=== PATIENT | female | born 1950 | race Caucasian/White ===

== ENCOUNTER 2018-12-02 13:20 | Emergency (ER) | payer MEDICARE, BC ==
--- OUTSIDE RECORDS SUMMARY | 2018-12-02 13:36 | XMS REPORT | Continuity of Care Document ---
:1950 External Reference #:[id number] Author Name Marlon Subramanian Care Team Providers Name Role Phone Pete Alanis MD Primary Care Physician Unavailable Payers Date Identification Numbers Payment Provider Subscriber Effective: 2014 Policy Number: [id number] Medicare [employer] Name: Medicare [address] PayID: [id number] [place] [address] Effective: 2005 Policy Number: [id number] [facility] [employer] Name: [facility] [address] PayID: [id number] [place] [address] Advance Directives Description No Information Available Problems Active Problems Provider Date Essential hypertension Onset: 10/30/2014 Benign essential hypertension Onset: 08/04/2011 Raynaud's disease Onset: 08/04/2011 Asthma without status asthmaticus Onset: 08/04/2011 Family History Date Family Member(s) Observation Comments Father Bone-Cancer Mother Unknown Social History Type Date Description Comments Sex Unknown Marital Status Occupation Full-Time Employment ETOH Use Consumes 2-3 glasses of wine per day Tobacco Use Reviewed: 11/07/15 Patient has never smoked Smoking Status Reviewed: 11/22/18 Patient has never smoked Allergies, Adverse Reactions, Alerts Active Allergies Reaction Severity Comments Date Pollen 07/29/2018 Dust 07/29/2018 Medications Active Medications SIG Qnty Indications Ordering Date Provider Rama blue to have 2units Pete 11/22/2018 50mcg/0.5ML immunization at [facility] now and in 3-6 months Lisinopril-Hydrochloro 1 by mouth every 90tabs I10 Pete 11/22/2018 thiazide day [facility] 20-25mg Tablets Omeprazole 1 by mouth every 90caps K21.9 Pete 11/10/2016 20mg Capsules day MD CAROL ANN Alanis Liptasneem 1 by mouth every 90tabs Pete 06/02/2016 10mg Tablets day at supper [facility] Levocetirizine 1 by mouth every 90tabs J30.9 Pete 11/08/2015 Dihydrochloride day [facility] 5mg Tablets Proair HFA 2 puffs every 4 1units J45.909 Pete 10/30/2014 108(90Base) hours as needed [facility] mcg/Act Aerosol Advair Diskus use 1 puff twice a 3units J45.909 Pete day [facility] 250-50mcg/Dose Aerosol History Medications Lisinopril 1 by mouth every 90tabs I10 Pete Alanis 05/12/2017 - 20mg day 11/22/2018 Tablets Flonase 2 sprays 1units 477.9 Pete Alanis 05/08/2014 - 50mcg/Act intranasal every 10/30/2014 Suspension day Xyzal 1 by mouth every 90tabs J30.9 Pete Alanis 05/08/2014 - 5mg Tablets day 11/08/2015 Niaspan 1 by mouth every 90tabs I10 Pete Alanis 05/08/2014 - 500mg day 05/26/2016 Tablets ER Lisinopril-Hydrochl 1 every day 90tabs I10 Pete Alanis 02/05/2014 - orothiazide 05/12/2017 20-25mg Tablets Veramyst 2 sprays 3units 477.9 Pete Alanis 02/22/2012 - intranasal every 02/15/2013 27.5mcg/Hinkle day Suspension Proctosol HC use after bm and 455.3 Pete Alanis, 08/26/2011 - 2.5% at hs 10/24/2013 Cream Florastor 1 po bid 60caps 009.1 Pete Alanis, 08/10/2011 - 250mg 10/24/2013 Capsules Lomotil up to 2 tabs qid 30tabs 009.1 Pete Alanis 08/10/2011 - 2.5-0.025mg 10/24/2013 Tablets Ventolin HFA 2 puffs q4prn 1units 493.90 Pete Alanis, 08/04/2011 - MD 10/30/2014 108(90Base) mcg/Act Aerosol Zyrtec Allergy 1 po prn 477.9 Pete Alanis, 08/04/2011 - 10mg 05/08/2014 Tablets Omeprazole 1 daily 90caps I10 Pete Alanis, - 40mg 11/10/2016 Capsules Lisinopril-Hydrochl 1 qd 90tabs 401.9 Pete Alanis, - orothiazide 02/05/2014 20-25mg Tablets Fluorouracil Unknown - 5% 11/11/2017 Cream Immunizations CPT Code Status Date Vaccine Lot # [id number] Given 11/08/2015 Pneumococcal Conjugate Vaccine 13 Valent For Intramuscular Use [id number] Given 10/24/2013 Tdap - Tetanus/Diptheria/Acellular Pertussis 06977 Given 02/15/2013 Zoster (Zostavax) [id number] Given 02/26/2000 Tetanus And Diptheria (Td) For Adult Use Preservative Free Vital Signs Date Vital Result Comment 11/22/2018 1:01pm Height 64 inches 5'4" Weight 165.00 lb Heart Rate 64 /min BP Systolic 150 mmHg BP Diastolic 76 mmHg Respiratory Rate 16 /min O2 % BldC Oximetry 99 % room air BMI (Body Mass Index) 28.3 kg/m2 05/20/2018 8:01am Weight 164.00 lb BP Systolic 148 mmHg BP Diastolic 70 mmHg 11/11/2017 8:17am Height 63 inches Weight 168.00 lb Heart Rate 78 /min BP Systolic 180 mmHg BP Diastolic 90 mmHg BMI (Body Mass Index) 29.8 kg/m2 05/12/2017 8:13am Weight 169.00 lb BP Systolic 126 mmHg BP Diastolic 72 mmHg 11/10/2016 9:27am Height 63.25 inches Weight 168.50 lb Heart Rate 68 /min BP Systolic 108 mmHg BP Diastolic 58 mmHg Respiratory Rate 16 /min Body Temperature 98.7 F BMI (Body Mass Index) 29.6 kg/m2 05/26/2016 8:07am Weight 170.00 lb BP Systolic 140 mmHg BP Diastolic 70 mmHg 11/08/2015 9:04am Height 63 inches Weight 167.00 lb Heart Rate 68 /min BP Systolic 138 mmHg BP Diastolic 80 mmHg Respiratory Rate 16 /min Body Temperature 98.7 F BMI (Body Mass Index) 29.6 kg/m2 10/30/2014 8:14am Height 63 inches Weight 167.00 lb Heart Rate 68 /min BP Systolic 116 mmHg BP Diastolic 68 mmHg Respiratory Rate 16 /min Body Temperature 98.5 F BMI (Body Mass Index) 29.6 kg/m2 05/08/2014 8:01am Weight 170.50 lb BP Systolic 128 mmHg BP Diastolic 74 mmHg 10/24/2013 8:03am Height 63.25 inches Weight 172.00 lb BP Systolic 130 mmHg BP Diastolic 70 mmHg BMI (Body Mass Index) 30.2 kg/m2 02/15/2013 8:41am Weight 170.50 lb BP Systolic 120 mmHg BP Diastolic 70 mmHg 08/23/2012 1:45pm Weight 168.00 lb BP Systolic 124 mmHg BP Diastolic 70 mmHg 02/22/2012 8:46am Height 63 inches BP Systolic 130 mmHg BP Diastolic 70 mmHg 08/26/2011 2:19pm Height 63 inches Weight 159.50 lb BP Systolic 112 mmHg BP Diastolic 56 mmHg BMI (Body Mass Index) 28.3 kg/m2 08/10/2011 3:30pm Height 63 inches Weight 159.00 lb BMI (Body Mass Index) 28.2 kg/m2 08/04/2011 10:25am Height 63 inches Weight 165.00 lb BP Systolic 118 mmHg BP Diastolic 74 mmHg BMI (Body Mass Index) 29.2 kg/m2 Results Test Date Facility Test Result H/L Range Note Basic Metabolic Panel 08/26/2017 N2N/CCD Import Anion Gap 5 mEq/L Low 8- 16 1 BUN 11 mg/dL 7-18 BUN/Creat 15.7 ratio Calcium 8.5 mg/dL 8.5-10.1 Carbon Dioxide 31 mmol/L 21-32 Chloride 109 mmol/L High 98-107 Creatinine 0.7 mg/dL 0.6-1.3 Glom Filtration Rate, Estimate >60 mL/min Glucose 96 mg/dL 74-106 If >60 mL/min 2 Potassium 3.7 mmol/L 3.5-5.1 Sodium 145 mmol/L 136-145 Imaging finding 01/27/2017 N2N/CCD Import Bone Density <pending> Laboratory test 11/12/2016 N2N/CCD Import Hepatitis C < 0.1 s/corat 0- 0.9 3, 4 finding Antibody CBC 11/12/2016 N2N/CCD Import Hematocrit 38.5 % 36-46. 1 Hemoglobin 13.3 gm/dL 11.6-15.8 Mean Cell Volume 88.1 fl 80.9-99 Mean Corpuscular HGB 30.4 pg 25.9-32.7 Mean Corpuscular HGB Conc 34.5 g/dL High 30.8-34.3 Mean Platelet Volume 9.9 fL 8.9-12.4 Platelet Count 217 K/uL 150-400 Red Blood Count 4.37 M/uL 3.9-5.4 Red Cell Distri Width %CV 12.6 % 11.7-14.4 White Blood Count 5.1 K/uL 3.1-10.7 Comprehensive Metabolic Panel 11/12/2016 N2N/CCD Import Alb/Glob 1.1 ratio Albumin 3.6 g/dL 3.4-5 Alkaline Phosphatase 69 U/L 45-117 Anion Gap 9 mEq/L 8-16 BUN 13 mg/dL 7-18 BUN/Creat 14.4 ratio Bilirubin,Total 0.6 mg/dL 0.2-1 Calcium 8.8 mg/dL 8.5-10.1 Carbon Dioxide 30 mmol/L 21-32 Chloride 106 mmol/L 98-107 Creatinine 0.9 mg/dL 0.6-1.3 Globulin 3.3 g/dL 1.9-4.3 Glom Filtration Rate, Estimate >60 mL/min Glucose 102 mg/dL 74-106 If >60 mL/min 5 Potassium 3.4 mmol/L Low 3.5-5.1 SGPT/Alt 35 U/L 12-78 Sgot/Ast 16 U/L 15-37 Sodium 145 mmol/L 136-145 Total Protein 6.9 g/dL 6.4-8.2 LDL Cholesterol Profile 11/12/2016 N2N/CCD Import Cholesterol 175 mg/dL 6 HDL Cholesterol 50 mg/dL 7 LDL-Cholesterol 103 mg/dL 8 Triglycerides 110 mg/dL 9 Microalbumin,Random 11/12/2016 N2N/CCD Import Microalbumin,Urine 11.8 mg/L Urine CBC 05/19/2016 N2N/[facility] Import Hematocrit 42.7 % 36-46 10 .1 Hemoglobin 14.8 gm/dL 11.6-15.8 Mean Cell Volume 91.4 fl 80.9-99 Mean Corpuscular HGB 31.7 pg 25.9-32.7 Mean Corpuscular HGB Conc 34.7 g/dL High 30.8-34.3 Mean Platelet Volume 9.8 fL 8.9-12.4 Platelet Count 173 K/uL 155-360 Red Blood Count 4.67 M/uL 3.9-5.4 Red Cell Distri Width %CV 12.7 % 11.7-14.4 White Blood Count 4.2 K/uL 3.1-10.7 Comprehensive Metabolic Panel 05/19/2016 [facility] Import Alb/Glob 1.0 ratio Albumin 3.5 g/dL 3.4-5 Alkaline Phosphatase 69 U/L 45-117 Anion Gap 7 mEq/L Low 8-16 BUN 13 mg/dL 7-18 BUN/Creat 16.2 ratio Bilirubin,Total 0.5 mg/dL 0.2-1 Calcium 8.6 mg/dL 8.5-10.1 Carbon Dioxide 27 mmol/L 21-32 Chloride 108 mmol/L High 98-107 Creatinine 0.8 mg/dL 0.6-1.3 Globulin 3.5 g/dL 1.9-4.3 Glom Filtration Rate, Estimate >60 mL/min Glucose 100 mg/dL 74-106 If >60 mL/min 11 Potassium 3.6 mmol/L 3.5-5.1 SGPT/Alt 24 U/L 12-78 Sgot/Ast 18 U/L 15-37 Sodium 142 mmol/L 136-145 Total Protein 7.0 g/dL 6.4-8.2 Lipid Panel 05/19/2016 [facility] Import Cholesterol 231 mg/dL High 12 HDL Cholesterol 54 mg/dL 13 LDL-Cholesterol 155 mg/dL 14 Triglycerides 112 mg/dL 15 Microalbumin,Random 05/19/2016 [facility] Import Microalbumin,Urine 11.1 Urine mg/L Laboratory test finding 11/07/2014 N2N/[facility] Import Microalbumin,Random < 6.0 Urine mg/L CBC 11/07/2014 N2N/[facility] Import Hematocrit 40.5 % 36-4 6.1 Hemoglobin 14.2 gm/dL 11.6-15.8 Mean Cell Volume 92.3 fl 80.9-99 Mean Corpuscular HGB 32.3 pg 25.9-32.7 Mean Corpuscular HGB Conc 35.1 g/dL High 30.8-34.3 Mean Platelet Volume 10.0 fL 8.9-12.4 Platelet Count 228 K/uL 155-360 Red Blood Count 4.39 M/uL 3.9-5.4 Red Cell Distri Width %CV 13.2 % 11.7-14.4 White Blood Count 5.2 K/uL 3.1-10.7 Comprehensive Metabolic Panel 11/07/2014 N2N/[facility] Import Alb/Glob 1.1 ratio Albumin 3.5 g/dL 3.4-5 Alkaline Phosphatase 74 U/L 45-117 Anion Gap 9 mEq/L 8-16 BUN 13 mg/dL 7-18 BUN/Creat 14.4 ratio Bilirubin,Total 0.6 mg/dL 0.2-1 Calcium 9.3 mg/dL 8.5-10.1 Carbon Dioxide 28 mmol/L 21-32 Chloride 106 mmol/L 98-107 Creatinine 0.9 mg/dL 0.6-1.3 Globulin 3.3 g/dL 1.9-4.3 Glom Filtration Rate, Estimate >60 mL/min Glucose 103 mg/dL 74-106 If >60 mL/min 16 Potassium 3.4 mmol/L Low 3.5-5.1 SGPT/Alt 25 U/L 12-78 Sgot/Ast 17 U/L 15-37 Sodium 143 mmol/L 136-145 Total Protein 6.8 g/dL 6.4-8.2 LDL Cholesterol Profile 11/07/2014 N2N/[facility] Import Cholesterol 197 mg/dL 17 HDL Cholesterol 47 mg/dL 18 LDL-Cholesterol 122 mg/dL 19 Triglycerides 140 mg/dL 20 LDL Cholesterol Profile 05/04/2014 N2N/[facility] Import Cholesterol 236 mg/dL 21 HDL Cholesterol 45 mg/dL 22 LDL-Cholesterol 159 mg/dL 23 Triglycerides 160 mg/dL 24 CBC 10/26/2013 N2N/[facility] Import Hematocrit 39.3 % 36-46.1 Hemoglobin 13.7 gm/dL 11.6-15.8 Mean Cell Volume 90.3 fl 80.9-99 Mean Corpuscular HGB 31.5 pg 25.9-32.7 Mean Corpuscular HGB Conc 34.9 g/dL High 30.8-34.3 Mean Platelet Volume 10.4 fL 8.9-12.4 Platelet Count 230 K/uL 155-360 Red Blood Count 4.35 M/uL 3.9-5.4 Red Cell Distri Width %CV 12.7 % 11.7-14.4 White Blood Count 7.0 K/uL 3.1-10.7 Comprehensive Metabolic Panel 10/26/2013 N2N/[facility] Import Alb/Glob 1.0 ratio Albumin 3.7 g/dL 3.5-5 Alkaline Phosphatase 74 U/L 50-136 Anion Gap 10 mEq/L 8-16 BUN 14 mg/dL 5-23 BUN/Creat 20.0 ratio Bilirubin,Total 0.6 mg/dL 0.2-1.2 Calcium 8.9 mg/dL 8.5-10.1 Carbon Dioxide 30 mEq/L High 18-29 Chloride 106 mmol/L 98-107 Creatinine 0.7 mg/dL 0.5-1.4 Globulin 3.6 g/dL 1.9-4.3 Glom Filtration Rate, Estimate >60 mL/min Glucose 106 mg/dL 76-115 If >60 mL/min 25 Potassium 3.6 mmol/L 3.5-5.1 SGPT/Alt 31 U/L 30-65 Sgot/Ast 13 U/L Low 16-40 Sodium 142 mmol/L 136-145 Total Protein 7.3 g/dL 6.3-8 LDL Cholesterol 10/26/2013 N2N/[facility] Import Cholesterol 259 mg/dL High 120- 200 Profile HDL Cholesterol 54 mg/dL 29-83 LDL-Cholesterol 179 mg/dL 62-185 Triglycerides 132 mg/dL 16-231 Laboratory test 05/17/2012 [facility] Import Homocyst(E)Ine, 11.7 umol/L 0- 15 26 finding Plasma Laboratory test 05/17/2012 N2N/[facility] Import C-Reactive 1.70 mg/L 0-3 27 finding Protein,Cardiac Thyroid Stim Hormone 2.22 uIU/mL 0.49-4.67 Vitamin D,25-Hydroxy 21.2 ng/mL Low 30-100 28 CBC 05/17/2012 N2N/[facility] Import Hematocrit 39.4 % 36-46.1 Hemoglobin 13.6 gm/dL 11.6-15.8 Mean Cell Volume 88.9 fl 80.9-99 Mean Corpuscular HGB 30.7 pg 25.9-32.7 Mean Corpuscular HGB Conc 34.5 g/dL High 30.8-34.3 Mean Platelet Volume 9.8 fL 8.9-12.4 Platelet Count 238 K/uL 155-360 Red Blood Count 4.43 M/uL 3.9-5.4 Red Cell Distri Width %CV 12.3 % 11.7-14.4 White Blood Count 5.3 K/uL 3.1-10.7 LDL Cholesterol 05/17/2012 N2N/CCD Import Cholesterol 238 mg/dL High 120- 200 Profile HDL Cholesterol 42 mg/dL -83 LDL-Cholesterol 165 mg/dL 62-185 Triglycerides 153 mg/dL 16-231 Comprehensive Metabolic Panel 05/17/2012 N2N/CCD Import Alb/Glob 1.0 ratio Albumin 3.5 g/dL 3.5-5 Alkaline Phosphatase 59 U/L 50-136 Anion Gap 11 mEq/L 8-16 BUN 12 mg/dL 5-23 BUN/Creat 13.3 ratio Bilirubin,Total 0.3 mg/dL 0.2-1.2 Calcium 8.9 mg/dL 8.5-10.1 Carbon Dioxide 29 mEq/L 18-29 Chloride 106 mmol/L 98-107 Creatinine 0.9 mg/dL 0.5-1.4 Globulin 3.6 g/dL 1.9-4.3 Glom Filtration Rate, Estimate >60 mL/min Glucose 107 mg/dL 76-115 If >60 mL/min 29 Potassium 3.9 mmol/L 3.5-5.1 SGPT/Alt 31 U/L 30-65 Sgot/Ast 15 U/L Low 16-40 Sodium 142 mmol/L 136-145 Total Protein 7.1 g/dL 6.3-8 LDL Cholesterol Profile 02/23/2012 N2N/CCD Import Cholesterol 200 mg/dL 120-200 HDL Cholesterol 48 mg/dL -83 LDL-Cholesterol 136 mg/dL 62-185 Triglycerides 82 mg/dL 16-231 Laboratory test 02/15/2012 N2N/CCD Import Ovary BX/Wedge See Note 30 finding Resection Laboratory test 07/25/2011 N2N/CCD Import C. Difficile Toxin See Note 31 finding A/B Smear For WBC'S None Seen Smear Source: Stool Stool Culture See Note 32 Basic Metabolic Panel 07/25/2011 N2N/CCD Import Anion Gap 11 mEq/L 8-16 BUN 8 mg/dL 5-23 BUN/Creat 8.8 ratio Calcium 8.2 mg/dL Low 8.5-10.1 Carbon Dioxide 26 mEq/L 18-29 Chloride 109 mmol/L High 98-107 Creatinine 0.9 mg/dL 0.5-1.4 Glom Filtration Rate, Estimate >60 mL/min Glucose 123 mg/dL High 76-115 If >60 mL/min 33 Potassium 3.1 mmol/L Low 3.5-5.1 Sodium 143 mmol/L 136-145 CBS W/Automated Diff 07/25/2011 N2N/CCD Import Bas% 0.5 % 0-1.1 Baso # 0.03 K/uL 0-0.1 Eo% 2.3 % 0-6.6 Eos # 0.13 K/uL 0-0.5 Hematocrit 35.8 % Low 36-46.1 Hemoglobin 12.5 gm/dL 11.6-15.8 Lymph # 1.10 K/uL 0.8-3.4 Lymph % 19.7 % 17-46.1 Mean Cell Volume 89.1 fl 80.9-99 Mean Corpuscular HGB 31.1 pg 25.9-32.7 Mean Corpuscular HGB Conc 34.9 g/dL High 30.8-34.3 Mean Platelet Volume 10.1 fL 8.9-12.4 [place] # 0.76 K/uL 0.3-0.9 [place] % 13.6 % High 4.3-13.2 Neut# 3.57 K/uL 1-7 Neut% 63.9 % 40.4-72.8 Platelet Count 214 K/uL 155-360 Red Blood Count 4.02 M/uL 3.9-5.4 Red Cell Distri Width %CV 12.4 % 11.7-14.4 Red Cell Distri Width SD 40.0 fl 3-47 White Blood Count 5.6 K/uL 3.1-10.7 Laboratory test 07/24/2011 N2N/CCD Import Urine Culture See Note 34 finding Laboratory test 07/24/2011 N2N/CCD Import Stool Occult Negative 35 finding Blood-Single Spec Laboratory test 07/24/2011 N2N/CCD Import Lactic Acid 1.1 mmol/L 0.4-2 finding Laboratory test 07/24/2011 N2N/CCD Import Lipase 150 U/L 28-380 finding Urine Screen See Note 36 Basic Metabolic Panel 07/24/2011 N2N/CCD Import Anion Gap 14 mEq/L 8-16 BUN 13 mg/dL 5-23 BUN/Creat 13.0 ratio Calcium 9.2 mg/dL 8.5-10.1 Carbon Dioxide 24 mEq/L 18-29 Chloride 103 mmol/L 98-107 Creatinine 1.0 mg/dL 0.5-1.4 Glom Filtration Rate, Estimate 60 mL/min Glucose 153 mg/dL High 76-115 If >60 mL/min 37 Potassium 3.2 mmol/L Low 3.5-5.1 Sodium 138 mmol/L 136-145 CBS W/Automated Diff 07/24/2011 N2N/CCD Import Bas% 0.3 % 0-1.1 Baso # 0.02 K/uL 0-0.1 Eo% 0.5 % 0-6.6 Eos # 0.04 K/uL 0-0.5 Hematocrit 40.3 % 36-46.1 Hemoglobin 14.3 gm/dL 11.6-15.8 Lymph # 1.42 K/uL 0.8-3.4 Lymph % 19.1 % 17-46.1 Mean Cell Volume 86.7 fl 80.9-99 Mean Corpuscular HGB 30.8 pg 25.9-32.7 Mean Corpuscular HGB Conc 35.5 g/dL High 30.8-34.3 Mean Platelet Volume 9.9 fL 8.9-12.4 [place] # 0.76 K/uL 0.3-0.9 [place] % 10.2 % 4.3-13.2 Neut# 5.20 K/uL 1-7 Neut% 69.9 % 40.4-72.8 Platelet Count 231 K/uL 155-360 Red Blood Count 4.65 M/uL 3.9-5.4 Red Cell Distri Width %CV 12.4 % 11.7-14.4 Red Cell Distri Width SD 38.5 fl 3-47 White Blood Count 7.4 K/uL 3.1-10.7 Liver Function Tests 07/24/2011 N2N/CCD Import Alb/Glob 0.9 ratio Albumin 3.7 g/dL 3.5-5 Alkaline Phosphatase 68 U/L 50-136 Bilirubin,Direct 0.2 mg/dL 0.1-0.4 Bilirubin,Indirect 0.5 mg/dL 0-0.9 Bilirubin,Total 0.7 mg/dL 0.2-1.2 Globulin 4.0 g/dL 1.9-4.3 SGPT/Alt 31 U/L 30-65 Sgot/Ast 18 U/L 16-40 Total Protein 7.7 g/dL 6.3-8 Urinalysis With 07/24/2011 N2N/CCD Import Urine Bilirubin - Small High Microscopic Dipstick Urine Blood Moderate High Urine Clarity Clear Urine Color Yellow Urine Epithelial Cells Moderate [place] 38 Urine Glucose - Dipstick Negative mg/dL Urine Ketone 15 mg/dL High Urine Leuk Esterase Negative Urine Mucus Moderate [place] Urine Nitrite - Dipstick Negative Urine PH 6.0 1 Low 6.5-7.5 Urine Protein - Dipstick 30 mg/dL High Urine RBC 2-5 rbc/hpf 0-7 Urine Specific [place] 1.025 1 1.01-1.03 Urine Urobilinogen - Dipstick 0.2 E.U./dL 0.2-1 Urine WBC None Seen wbc/hpf 0-7 1 I10 2 Note: Persistent reduction for 3 months or more in an eGFR <60 mL/min/1.73 m2 defines CKD. Patients with eGFR values >/=60 mL/min/1.73 m2 may also have CKD if evidence of persistent proteinuria is present. The original MDRD equation for estimated GFR is not valid for patients less than 18 years of age. Additional information may be found at www.kdoqi.org. 3 I10,E78.5,Z11.9 4 INFCE Result Units: s/co ratio Negative: < 0.8 Indeterminate: 0.8 - 0.9 Positive: > 0.9 The CDC recommends that a positive HCV antibody result be followed up with a HCV Nucleic Acid Amplification test ([id number]). Performed at: RN - [facility] [address] [id number] Guest Services Officer: Chante Ruffin MD, Phone: [phone] Note: Persistent reduction for 3 months or more in an eGFR <60 mL/min/1.73 m2 defines CKD. Patients with eGFR values >/=60 mL/min/1.73 m2 may also have CKD if evidence of persistent proteinuria is present. The original MDRD equation for estimated GFR is not valid for patients less than 18 years of age. Additional information may be found at www.kdoqi.org. 6 Reference Guidelines*: Desirable: ........... < 200 mg/dL Borderline High: ..... 200-239 mg/dL High: ................ >=240 mg/dL * The National Cholesterol Education Program (NCEP) 7 Reference Guidelines*: Low HDL: ..... < 40 mg/dL Normal: ..... 40-60 mg/dL Desirable: ... > 60 mg/dL *The National Cholesterol Education Program(NCEP) 8 Reference Guidelines*: Optimal:........... <100 mg/dL Near Optimal....... 100-129 mg/dL Borderline High.... 130-159 mg/dL High............... 160-189 mg/dL Very High.......... >=190 mg/dL * Source: National Cholesterol Education Program (NCEP) 9 Reference Guidelines*: Normal: ............. < 150 mg/dL Borderline High: .... 150-199 mg/dL High: ............... 200-499 mg/dL Very High: .......... > 500 mg/dL * Source: National Cholesterol Education Program (NCEP) 10 E78.5,I10 11 Note: Persistent reduction for 3 months or more in an eGFR <60 mL/min/1.73 m2 defines CKD. Patients with eGFR values >/=60 mL/min/1.73 m2 may also have CKD if evidence of persistent proteinuria is present. The original MDRD equation for estimated GFR is not valid for patients less than 18 years of age. Additional information may be found at www.[email or web address]. 12 Reference Guidelines*: Desirable: ........... < 200 mg/dL Borderline High: ..... 200-239 mg/dL High: ................ >=240 mg/dL * The National Cholesterol Education Program (NCEP) 13 Reference Guidelines*: Low HDL: ..... < 40 mg/dL Normal: ..... 40-60 mg/dL Desirable: ... > 60 mg/dL *The National Cholesterol Education Program(NCEP) 14 Reference Guidelines*: Optimal:........... <100 mg/dL Near Optimal....... 100-129 mg/dL Borderline High.... 130-159 mg/dL High............... 160-189 mg/dL Very High.......... >=190 mg/dL * Source: National Cholesterol Education Program (NCEP) 15 Reference Guidelines*: Normal: ............. < 150 mg/dL Borderline High: .... 150-199 mg/dL High: ............... 200-499 mg/dL Very High: .......... > 500 mg/dL * Source: National Cholesterol Education Program (NCEP) 16 Note: Persistent reduction for 3 months or more in an eGFR <60 mL/min/1.73 m2 defines CKD. Patients with eGFR values >/=60 mL/min/1.73 m2 may also have CKD if evidence of persistent proteinuria is present. The original MDRD equation for estimated GFR is not valid for patients less than 18 years of age. Additional information may be found at www.kdoqi.org. 17 Reference Guidelines*: Desirable: ........... < 200 mg/dL Borderline High: ..... 200-239 mg/dL High: ................ >=240 mg/dL * The National Cholesterol Education Program (NCEP) 18 Reference Guidelines*: Low HDL: ..... < 40 mg/dL Normal: ..... 40-60 mg/dL Desirable: ... > 60 mg/dL *The National Cholesterol Education Program(NCEP) 19 Reference Guidelines*: Optimal:........... <100 mg/dL Near Optimal....... 100-129 mg/dL Borderline High.... 130-159 mg/dL High............... 160-189 mg/dL Very High.......... >=190 mg/dL * Source: National Cholesterol Education Program (NCEP) 20 Reference Guidelines*: Normal: ............. < 150 mg/dL Borderline High: .... 150-199 mg/dL High: ............... 200-499 mg/dL Very High: .......... > 500 mg/dL * Source: National Cholesterol Education Program (NCEP) 21 Reference Guidelines*: Desirable: ........... < 200 mg/dL Borderline High: ..... 200-239 mg/dL High: ................ >=240 mg/dL * The National Cholesterol Education Program (NCEP) 22 Reference Guidelines*: Low HDL: ..... < 40 mg/dL Normal: ..... 40-60 mg/dL Desirable: ... > 60 mg/dL *The National Cholesterol Education Program(NCEP) 23 Reference Guidelines*: Optimal:........... <100 mg/dL Near Optimal....... 100-129 mg/dL Borderline High.... 130-159 mg/dL High............... 160-189 mg/dL Very High.......... >=190 mg/dL * Source: National Cholesterol Education Program (NCEP) 24 Reference Guidelines*: Normal: ............. < 150 mg/dL Borderline High: .... 150-199 mg/dL High: ............... 200-499 mg/dL Very High: .......... > 500 mg/dL * Source: National Cholesterol Education Program (NCEP) 25 Note: Persistent reduction for 3 months or more in an eGFR <60 mL/min/1.73 m2 defines CKD. Patients with eGFR values >/=60 mL/min/1.73 m2 may also have CKD if evidence of persistent proteinuria is present. The original MDRD equation for estimated GFR is not valid for patients less than 18 years of age. Additional information may be found at www.[email or web address]. 26 Performed at: RN - [facility] [address] [id number] Guest Services Officer: Chante Ruffin MD, Phone: [phone] 27 Relative Risk for Future Cardiovascular Event Low <1.00 Average 1.00 - 3.00 High >3.00 28 Vitamin D deficiency has been defined by the Outlook of Medicine and an Endocrine Society practice guideline as a level of serum 25-OH vitamin D less than 20 ng/mL (1,2). The Endocrine Society went on to further define vitamin D insufficiency as a level between 21 and 29 ng/mL (2). 1. IOM (Outlook of Medicine). 2010. Dietary reference intakes for calcium and D. [place]: The National Academies Press. 2. Tank MF, [place], Trina-Alejandro FORRESTER, et al. Evaluation, treatment, and prevention of vitamin D deficiency: an Endocrine Society clinical practice guideline. JCEM. 2010; 96(7):1911-30. Performed at: RN - [facility] [address] [id number] Guest Services Officer: Chante Ruffin MD, Phone: [phone] 29 Note: Persistent reduction for 3 months or more in an eGFR <60 mL/min/1.73 m2 defines CKD. Patients with eGFR values >/=60 mL/min/1.73 m2 may also have CKD if evidence of persistent proteinuria is present. The original MDRD equation for estimated GFR is not valid for patients less than 18 years of age. Additional information may be found at www.kdoqi.org. 30 This is a corrected report. Any previous versions are stored internally and are available if necessary. OPERATION/PROCEDURE Laparoscopic BSO, left ovarian cystectomy. DIAGNOSIS: PART 1: "LEFT OVARY MASS": BENIGN SEROUS CYSTADENOMA. PART 2: "RIGHT OVARY AND TUBE": OVARY: CILIATED COLUMNAR LINED GLANDULAR SPACES, CONSISTENT WITH ENDOSALPINGIOSIS. FALLOPIAN TUBE: PARATUBAL CYSTS. /[facility] FROZEN SECTION DIAGNOSIS FROZEN SECTION DIAGNOSIS BY: SIN BENDER MD BENIGN SEROUS CYSTADENOMA. GROSS Part 1. Received fresh labeled, "LEFT OVARY MASS FOR FROZEN SECTION" is a 4.5 x 3.7 x 3.7 cm. ovary, that is almost completely occupied by a cyst with clear fluid and a segment of fallopian tube measuring 5.5 cm. in length and up to 0.7 cm. in diameter. The entire specimen weights 33 grams in toto. Upon further sectioning the ovarian cyst contains clear fluid, the inner lining of the cyst is smooth without evidence of papillary growth nor necrosis. Harmonica Maker sections are submitted in two blocks encompassing the frozen section. /[facility] 02/14/11 Part 2. The specimen is received in a single container additionally labeled, "RIGHT OVARY AND TUBE". This is a recognizable fallopian tube and ovary measuring as follows: ovary - 2.7 x 1.7 x 0.8 cm. and distal fallopian tube measuring - 6.6 cm. in length with a diameter of 0.6 cm. There is no gross abnormality of the fallopian tube GROSS (Continued) or ovary. Harmonica Maker sections of each are submitted within their respective cassettes A and B. /[facility] MICROSCOPIC Part 1. Sections reveal flat to cuboidal cells lining the ovarian cyst. Sections from ovary are normal appearing like the fallopian tube. Part 2: The sections from ovary demonstrates gland like spaces lined by cuboidal cells with focal ciliated and intercalated type cells. Sections from fallopian tube reveal cysts lined by flat to cuboidal cells. PRE OPERATIVE DIAGNOSIS Ovarian cystic mass and fibroids. REVIEW CODE CODE: I SIN James MD 3769 31 NEGATIVE FOR C. DIFFICILE TOXIN A/B. CORRELATE RESULTS WITH CLINICAL CONDITION. 32 Organism 1 ! NO ENTERIC PATHOGENS ISOLATED . ! ................................................... NOTE: ! INCLUDES TESTING FOR SALMONELLA, SHIGELLA, AEROMONAS, . ! PLESIOMONAS, CAMPYLOBACTER, AND E. COLI 0157:H7 . ! ................................................... . ! YERSINIA AND VIBRIO ARE NOT ROUTINELY SCREENED FOR AND . ! SHOULD BE REQUESTED SEPARATELY SCANT ENTERIC JULI 33 Note: Persistent reduction for 3 months or more in an eGFR <60 mL/min/1.73 m2 defines CKD. Patients with eGFR values >/=60 mL/min/1.73 m2 may also have CKD if evidence of persistent proteinuria is present. The original MDRD equation for estimated GFR is not valid for patients less than 18 years of age. Additional information may be found at www.[facility].org. 34 NO GROWTH: FINAL REPORT 35 Comments to primary counselor: COPY TO DR. Gibbs Comments: REPLACED ORDER - OTHER ORDER STATED UNCOLLECTED 36 07/24/11 LAB.OPT Deleted by [facility] [place] 37 Note: Persistent reduction for 3 months or more in an eGFR <60 mL/min/1.73 m2 defines CKD. Patients with eGFR values >/=60 mL/min/1.73 m2 may also have CKD if evidence of persistent proteinuria is present. The original MDRD equation for estimated GFR is not valid for patients less than 18 years of age. Additional information may be found at www.[facility].org. 38 POSSIBLE UROGENITAL CONTAMINATION. Procedures Date Code Description Status 11/08/2015 39866 Pure Tone Hearing Test, Air Completed 03/19/2015 69633 Mammography Unilateral Completed 03/19/2015 [id number] Mammogram Completed 12/19/2014 91461 Bone Density Study, Single Photon Absorptiometry Completed 10/30/2014 09086 Pure Tone Hearing Test, Air Completed 07/26/2014 [id number] Diabetic Retinal Eye Exam Completed 05/31/2014 07636 Colonoscopy Flexible Diagnostic Completed 05/31/2014 [id number] Colonoscopy Completed 10/24/2013 36326 Pure Tone-Air Condition Only Completed 05/20/2010 53378 Visual funct screen test, automated Completed 05/20/2010 79117 Tympanometry Completed Encounters Description No Information Available Plan of Treatment Future Appointment(s):05/24/2019 9:30 am - Pete Alanis MD at [facility]11/22/2018 - Pete Alanis MDZ00.00 Encounter for general adult medical examination without abnoI10 Essential (primary) hypertensionNew Medication:Lisinopril-Hydrochlorothiazide 20-25 mg - 1 by mouth every dayNew Labs:Comp Metabolic Panel, Ordered: 11/22/18CBC Auto Diff, Ordered: Follow up:6 months.E78.5 Hyperlipidemia, unspecifiedNew Labs:Lipid Profile ( Trig/Chol/HDL), Ordered: 11/22/18J30.9 Allergic rhinitis, [id number] Unspecified asthma, [id number] Gastro-esophageal reflux disease without esophagitis
[2018-12-02 13:46] VITALS: BP 144/69
--- NOTE | 2018-12-02 14:04 | UC ---
Skin Complaint HPI - HPI Summary HPI Summary: 68 year old female presents with onset of tender erythema to her lower back last night. Denies fever, chills, injury, or pruritis. - History of Current Complaint Chief Complaint: UCSkin Time Seen by Provider: 12/02/18 13:53 Stated Complaint: RASH ON BACK Hx Obtained From: Patient Pain Intensity: 2 - Allergy/Home Medications Allergies/Adverse Reactions: Allergies Allergy/AdvReac Type Severity Reaction Status Date / Time pollen extracts Allergy Sneezing, Verified 12/02/18 13:40 Congestion Home Medications: Home Medications Atorvastatin* [Lipitor*] mg PO DAILY 12/02/18 [History] LevoCETirizine TAB (NF) [Xyzal TAB (NF)] 5 mg PO DAILY 12/02/18 [History Confirmed 12/02/18] Lisinopril TAB* [Prinivil TAB*] mg PO DAILY 12/02/18 [History] Omeprazole CAP (NF) [Prilosec CAP* 20 MG] 20 mg PO DAILY 12/02/18 [History Confirmed 12/02/18] PMH/Surg Hx/FS Hx/Imm Hx Endocrine History: Dyslipidemia Cardiovascular History: Hypertension GI/ History: Gastroesophageal Reflux - Surgical History Surgical History: Yes Surgery Procedure, Year, and Place: Bilateral Oopherectomy, [place] - Family History Known Family History: Positive: Non-Contributory - Social History Occupation: Retired Lives: With Family Alcohol Use: wine with dinner Substance Use Type: None Smoking Status (MU): Never Smoked Tobacco Review of Systems All Other Systems Reviewed And Are Negative: Yes Constitutional: Negative: Fever, Chills Skin: Positive: Other - See HPI Respiratory: Positive: Negative Cardiovascular: Positive: Negative Gastrointestinal: Positive: Negative Genitourinary: Positive: Negative Musculoskeletal: Positive: Negative Neurological: Positive: Negative Is Patient Immunocompromised?: No Physical Exam - Summary Physical Exam Summary: GENERAL APPEARANCE: Alert and cooperative older adult female who appears to be in no acute distress. CARDIAC: Normal S1 and S2. No S3, S4 or murmurs. Rhythm is regular. There is no peripheral edema, cyanosis or pallor. Extremities are warm and well perfused. Capillary refill is less than 2 seconds. Peripheral pulses intact. LUNGS: Clear to auscultation without rales, rhonchi, wheezing or diminished breath sounds. ABDOMEN: Positive bowel sounds. Soft, nondistended, nontender. No guarding or rebound. No masses or hepatosplenomegally. MUSKULOSKELETAL: ROM intact to all extremities. No joint erythema or tenderness. Normal muscular development. Normal gait. SKIN: Tender, erythematous lesion 5 cm x 20 cm across the lower lumbar back at the waistline with increased warmth. No induration or fluctuance noted. Triage Information Reviewed: Yes Vital Signs: Initial Vital Signs Temp 98.4 F 12/02/18 13:38 Pulse 74 12/02/18 13:38 Resp 16 12/02/18 13:38 BP 144/69 12/02/18 13:38 Pulse Ox 97 12/02/18 13:38 Vital Signs Reviewed: Yes Course/Dx - Course Course Of Treatment: 68 year old female presents with onset of tender erythema to her lower back last night. Denies fever, chills, injury, or pruritis. Afebrile. Hypertensive otherwise VSS. Exam revealed tender, erythematous lesion 5 cm x 20 cm across the lower lumbar back at the waistline with increased warmth. No induration or fluctuance noted. Will treat her for cellulitis with cephalexin 50 mg TID x 7 days. She is to follow up with her PCP in 3-5 days for recheck of her symptoms. Anticipatory guidance and warning symptoms were reviewed with the patient. Verbalizes understanding and agrees with POC. - Differential Diagnoses - Skin Complaint Differential Diagnoses: Abscess, Cellulitis, Contact Dermatitis, Poison Maria Esther, Poison Wesley, Tinea, Other - Shingles - Diagnoses Provider Diagnosis: Cellulitis of lower back Discharge - Sign-Out/Discharge Documenting (check all that apply): Patient Departure All imaging exams completed and their final reports reviewed: No Studies - Discharge Plan Condition: Stable Disposition: HOME Prescriptions: cephALEXin [Keflex] 500 mg PO Q8HR #21 capsule Patient Education Materials: Cellulitis (ED) Referrals: Pete Alanis MD [Primary Care Provider] - 3 Days Additional Instructions: The redness to your lower back appears to be an infection of the skin called cellulitis. I will start you on an antibiotic for the infection. Start cephalexin (Keflex) 500 mg 1 capsule every 8 hours for 7 days. Use acetaminophen (Tylenol) or ibuprofen (Advil, Motrin) according as to directions needed for pain. Follow-up with your primary care provider in 3-5 days for recheck of symptoms. Seek immediate medical attention if you develop a fever greater than 100.5 F, the redness continues to spread, you have increased pain, or have any worsening of symptoms. - Billing Disposition and Condition Condition: STABLE Disposition: Home
== END 2018-12-02 14:10 | disposition home or self-care (01) ==
LOC: UCCORT 13:20
DX: L03.312 Cellulitis of back [any part except buttock and flank] (principal); J30.1 Allergic rhinitis due to pollen; E78.5 Hyperlipidemia, unspecified; I10 Essential (primary) hypertension; K21.9 Gastro-esophageal reflux disease without esophagitis
CPT/HCPCS: 99212; G0463